=== PATIENT | female | born 1960 ===

== ENCOUNTER 2019-09-21 13:40 | Outpatient (CLI) | payer OTHER ==
--- NOTE | 2019-09-21 14:10 | RAD ---
RIGHT SHOULDER 3 VIEWS: HISTORY: [id number]. FINDINGS: No evidence for acute fracture or dislocation or other significant acute osseous abnormality. IMPRESSION: Unremarkable right shoulder. POS: RRE
== END 2019-09-21 13:41 | disposition home or self-care (01) ==
LOC: SCSRAD 13:40
PROVIDERS: ATTEND Family Medicine
DX: M25.511 Pain in right shoulder (principal)